=== PATIENT | female | born 1965 | race Two or more races ===

== ENCOUNTER 2018-07-11 12:25 | Emergency (ER) | payer MEDICAID, MEDICARE ==
[~2018-07-11] VITALS: Ht 182.9 cm; Wt 92.8 kg
[2018-07-11 12:46] VITALS: BP 164/101
== END 2018-07-11 14:48 | disposition home or self-care (01) ==
LOC: ED 14:41
DX: J45.909 Unspecified asthma, uncomplicated (principal); I10 Essential (primary) hypertension
CPT/HCPCS: 71046; 99284

== ENCOUNTER 2018-07-15 20:13 | Emergency (ER) | payer MEDICARE ==
[~2018-07-15] VITALS: Ht 170.2 cm; Wt 92.4 kg
[2018-07-15 20:19] VITALS: BP 138/88
[2018-07-15] MEDS ORDERED: BENZONATATE 100 MG CAPSULE ONE (20:55)
[2018-07-15] MEDS ORDERED: MAALOX/HYOSCYAMINE/LIDOCAINE 45 ML BTL ONE (20:55)
[2018-07-15] MEDS ORDERED: BENZONATATE 100 MG CAPSULE PO ONE (21:00)
[2018-07-15] MEDS ORDERED: ALBUTEROL/IPRATROPIUM 2.5MG/0.5MG, 3 ML NPPB ONE (21:00)
[2018-07-15] MEDS ORDERED: MAALOX/HYOSCYAMINE/LIDOCAINE 45 ML BTL PO ONE (21:00)
[2018-07-15] MEDS ORDERED: ALBUTEROL/IPRATROPIUM 2.5MG/0.5MG, 3 ML ONE (21:18)
== END 2018-07-15 21:48 | disposition home or self-care (01) ==
LOC: ED 21:34
DX: J45.21 Mild intermittent asthma with (acute) exacerbation (principal); J20.8 Acute bronchitis due to other specified organisms; B96.89 Other specified bacterial agents as the cause of diseases classified elsewhere; I10 Essential (primary) hypertension
CPT/HCPCS: 71046; 94640; 99284; J7620

== ENCOUNTER 2018-11-15 09:03 | Emergency (ER) | payer MEDICARE ==
[~2018-11-15] VITALS: Ht 167.6 cm; Wt 97.7 kg
[2018-11-15 09:28] VITALS: BP 161/80
--- NOTE | 2018-11-15 10:06 | NUR ---
Patient/Caregiver given discharge instructions and they have confirmed that they understand the instructions. Patient ambulatory with steady gait.
[2018-11-15] MEDS ORDERED: HYDROcodone/APAP 5/325 TABLET ONE (10:09)
[2018-11-15] MEDS ORDERED: HYDROcodone/APAP 5/325 TABLET PO ONE (10:30)
== END 2018-11-15 10:31 | disposition home or self-care (01) ==
LOC: ED 10:11
DX: H69.91 Unspecified Eustachian tube disorder, right ear (principal); R68.84 Jaw pain; J45.909 Unspecified asthma, uncomplicated; I10 Essential (primary) hypertension; M19.90 Unspecified osteoarthritis, unspecified site
CPT/HCPCS: 99283

== ENCOUNTER 2018-12-13 11:03 | Emergency (ER) | payer MEDICAID, MEDICARE ==
[~2018-12-13] VITALS: Ht 167.6 cm; Wt 92.0 kg
[2018-12-13] MEDS ORDERED: ACETAMINOPHEN 500 MG TABLET PO ONE (12:00)
[2018-12-13 12:29] LABS: RAPID INFLUENZA A POSITIVE (Negative); RAPID INFLUENZA B Negative (Negative)
--- NOTE | 2018-12-13 12:36 | NUR ---
TO ROOM FROM LOBBY. NAD.
[2018-12-13] MEDS ORDERED: ACETAMINOPHEN 500 MG TABLET ONE (12:40)
[2018-12-13] MEDS ORDERED: AMOX500T PO (12:46)
[2018-12-13] MEDS ORDERED: ASPI-496 PO (12:47)
[2018-12-13] MEDS ORDERED: AMLO5TAB4 PO (12:51)
[2018-12-13] MEDS ORDERED: FERR325T5 PO (12:51)
[2018-12-13] MEDS ORDERED: HYDR12.575 PO (12:52)
[2018-12-13] MEDS ORDERED: ALBU18HF PO (12:52)
[2018-12-13] MEDS ORDERED: KETOROLAC 30 MG/1 ML IM ONE (13:00)
[2018-12-13] MEDS ORDERED: KETOROLAC 30 MG/1 ML ONE ×2 (13:44→13:45)
[2018-12-13 13:52] VITALS: BP 120/88
== END 2018-12-13 14:26 | disposition home or self-care (01) ==
LOC: ED 14:10
DX: J10.1 Influenza due to other identified influenza virus with other respiratory manifestations (principal); J31.0 Chronic rhinitis; J45.909 Unspecified asthma, uncomplicated; I10 Essential (primary) hypertension; Z88.1 Allergy status to other antibiotic agents; Z88.8 Allergy status to other drugs, medicaments and biological substances; Z59.0 Homelessness
CPT/HCPCS: 71046; 87400; 96372; 99284; J1885